=== PATIENT | female | born 1980 | race Caucasian/White ===

== ENCOUNTER 2016-12-20 08:52 | Emergency (ER) | payer BC ==
[~2016-12-20] VITALS: Ht 175.3 cm; Wt 101.4 kg
[2016-12-20 08:58] VITALS: TEMP 97.7
[2016-12-20 10:02] LABS: BASO % 0.4 % (0.0-2.0); EOS # 0.1 (0.0-0.7); EOS % 1.6 % (0-4.0); GRAN # 4.6 (1.4-6.5); GRAN % 66.8 % (42.2-75.2); HEMATOCRIT 38.3 % (37.0-47.0); LYMPH # 1.6 (1.2-3.4); LYMPH % 23.6 % (20.0-51.0); MEAN CELL VOLUME 90 fl (80.0-100.0); MEAN CORPUSCULAR HEMOGLOBIN 31 pg (27.0-31.0); MEAN CORPUSCULAR HGB CONC 34 g/dl (33.0-37.0); MEAN PLATELET VOLUME 9.8 fl (7.4-10.4); MONO # 0.5 (0.1-0.6); MONO % 7.5 % (1.7-9.3); PLATELET COUNT 233 K/mm3 (130-400); RED BLOOD COUNT 4.26 M/mm3 (4.10-5.30); WHITE BLOOD COUNT 6.9 K/mm3 (4.8-10.8)
[2016-12-20 10:15] LABS: ADJUSTED CALCIUM 8.9 mg/dL (8.4-10.2); ALANINE AMINOTRANSFERASE 31 U/L (9-52); ALBUMIN 4.3 gm/dL (3.5-5.0); ALKALINE PHOSPHATASE 74 U/L (50-136); ANION GAP 12 mmol/L (7-16); BILIRUBIN,TOTAL 1.1 mg/dL (0.0-1.0); BLOOD UREA NITROGEN 9 mg/dL (7-17); CALCIUM 9.1 mg/dL (8.4-10.2); CARBON DIOXIDE 21 mmol/L (22-30); CHLORIDE 105 mmol/L (98-107); CREATININE, serum 0.65 mg/dL (0.52-1.25); GLUCOSE 93 mg/dL (74-106); POTASSIUM 3.9 mmol/L (3.4-5.0); SODIUM 138 mmol/L (137-145); TOTAL PROTEIN 7.4 gm/dL (6.4-8.2)
[2016-12-20 10:37] LABS: TROPONIN-I < 0.012 ng/mL (0.000-0.034)
[2016-12-20] MEDS ORDERED: FLEXERIL 1010 MG/TAB PO (10:55)
[2016-12-20 11:05] VITALS: BP 128/78; PULSE 61
== END 2016-12-20 11:06 | disposition home or self-care (01) ==
LOC: COL.ER 08:52
PROVIDERS: Nurse Practitioner
DX: R07.9 Chest pain, unspecified (principal); M54.89 Other dorsalgia
CPT/HCPCS: J1885; J2360; J7030